=== PATIENT | male | born 1960 | race Caucasian/White ===

== ENCOUNTER 2018-03-07 14:02 | Emergency (ER) | payer OTHER ==
[~2018-03-07] VITALS: Ht 182.9 cm; Wt 165.9 kg
[~2018-03-07 14:02] MED LIST: ADVAIR DISKUS 21 DSK IH; ALAVERT10 M1 PO; AMLODIPINE BESYL5 MG PO; AVAPRO300 M1 PO; COREG25 MG PO; DUO-KAPS1 CAP PO; FLUTICASON0.05 MG/A1 NS; MEDI-FIRST ASP325 MG PO; METFORMIN1000 MG PO; PROVENTIL0.09 MG/Ac IH; SINGULAIR4 MG PO; VYTORIN 10 MG-41 TAB PO; [UNRECOGNIZED DRUG - OTHER] PO
[2018-03-07 14:55] LABS: HEMATOCRIT 44.6 % (42.0-52.0); MEAN CELL VOLUME 101 fl (78-100); MEAN CORPUSCULAR HEMOGLOBIN 32 pg (27-31); MEAN CORPUSCULAR HGB CONC 31 g/dL (33-37); PLATELET COUNT 203 K/mm3 (130-400); RED BLOOD COUNT 4.43 M/mm3 (4.20-5.60); RED CELL DISTRIBUTION WIDTH 13.7 % (11.5-14.5); WHITE BLOOD COUNT 7.5 K/mm3 (4.8-10.8)
[2018-03-07 15:15] LABS: ALBUMIN 3.5 g/dL (3.5-5.0); CALCIUM 8.7 mg/dL (8.4-10.2); POTASSIUM 4.7 mmol/L (3.6-5.0); TOTAL BILIRUBIN 1.2 mg/dL (0.2-1.3); TOTAL PROTEIN 6.2 g/dL (6.3-8.2)
[2018-03-07 15:55] LABS: D-DIMER 0.69 mg/L FEU (0.15-0.50)
[2018-03-07 16:03] LABS: LYMPHOCYTE 15 % (20-51); NEUTROPHILS 76 % (42-75)
[2018-03-07 16:04] LABS: MONOCYTE 9 % (3-10)
[2018-03-07] MEDS ORDERED: CLONAZEPAM1 M1 PO (16:22)
[2018-03-07] MEDS ORDERED: ESCITALOPRAM10 MG PO (16:22)
[2018-03-07] MEDS ORDERED: SINGULAIR PO (16:24)
[2018-03-07] MEDS ORDERED: NOVOLOG FLEX100 U/ML SC (16:24)
[2018-03-07] MEDS ORDERED: DESYREL 100MG100 MG PO (16:25)
[2018-03-07] MEDS ORDERED: JARDIANCE10 MG PO (16:27)
[2018-03-07 18:44] VITALS: BP 131/66
[2018-03-07] MEDS ORDERED: MORGIDOX 1X100100 MG PO (20:00)
== END 2018-03-07 20:08 | disposition home or self-care (01) ==
LOC: ED 14:02
PROVIDERS: Nurse Practitioner Primary Care
DX: R42 Dizziness and giddiness (principal); R11.2 Nausea with vomiting, unspecified; E10.9 Type 1 diabetes mellitus without complications; Z79.4 Long term (current) use of insulin; I10 Essential (primary) hypertension; J45.909 Unspecified asthma, uncomplicated; G47.30 Sleep apnea, unspecified; Z79.899 Other long term (current) drug therapy
CPT/HCPCS: J2405; J7120; Q9967

== ENCOUNTER → 2018-07-17 | Outpatient (CLI) | payer OTHER ==
[~2018-07-17] MED LIST changes: +CLONAZEPAM1 M1 PO; +DESYREL 100MG100 MG PO; +ESCITALOPRAM10 MG PO; +JARDIANCE10 MG PO; +MORGIDOX 1X100100 MG PO; +NOVOLOG FLEX100 U/ML SC; +SINGULAIR PO
[2018-07-17 16:18] LABS: BASO # 0.1 (0.02-0.10); EOS # 0.1 (0.04-0.40); EOS % 1.3 % (0.0-4.0); HEMOGLOBIN 15.5 g/dL (13.5-18.0); LYMPH# 1.5 (1.50-4.00); MEAN CELL VOLUME 99 fl (78-100); MEAN CORPUSCULAR HEMOGLOBIN 30 pg (27-31); MEAN CORPUSCULAR HGB CONC 30 g/dL (33-37); MEAN PLATELET VOLUME 11.4 fl (7.4-10.4); MONO # 1.3 (0.20-0.80); PLATELET COUNT 249 K/mm3 (130-400); RED BLOOD COUNT 5.15 M/mm3 (4.20-5.60); RED CELL DISTRIBUTION WIDTH 14.3 % (11.5-14.5); WHITE BLOOD COUNT 11.1 K/mm3 (4.8-10.8)
== END ==
LOC: LAB 15:53
PROVIDERS: Internal Medicine Pulmonary Disease
DX: R06.02 Shortness of breath (principal)

== ENCOUNTER → 2018-08-22 | Outpatient (CLI) | payer OTHER ==
[2018-08-27 05:26] LABS: DERMATOPHAGOIDES PTERONYSSIN XXX; OAK XXX
[2018-08-27 05:27] LABS: SALTWORT-RUSSIAN THISTLE XXX
== END ==
LOC: LAB 15:03
PROVIDERS: Internal Medicine Pulmonary Disease
DX: J30.9 Allergic rhinitis, unspecified (principal)

== ENCOUNTER → 2019-07-06 | Outpatient (CLI) | payer OTHER | LOC: RAD 07:27 | DX: R11.15 Cyclical vomiting syndrome unrelated to migraine (principal); E11.9 Type 2 diabetes mellitus without complications ==

== ENCOUNTER → 2020-11-14 | Outpatient (CLI) | payer OTHER ==
[2020-11-14 14:16] LABS: ALBUMIN 3.8 g/dL (3.4-4.8); POTASSIUM 4.5 mmol/L (3.5-5.1)
[2020-11-14 14:18] LABS: CALCIUM 9.3 mg/dL (8.3-10.5)
[2020-11-14 14:19] LABS: TOTAL PROTEIN 7.5 g/dL (6.2-8.1)
[2020-11-14 14:21] LABS: TOTAL BILIRUBIN 0.8 mg/dL (0.2-1.2)
== END ==
LOC: LAB 11:46
PROVIDERS: Registered Nurse
DX: E11.3291 Type 2 diabetes mellitus with mild nonproliferative diabetic retinopathy without macular edema, right eye (principal); E66.01 Morbid (severe) obesity due to excess calories; E03.9 Hypothyroidism, unspecified; E11.649 Type 2 diabetes mellitus with hypoglycemia without coma; E78.2 Mixed hyperlipidemia; I10 Essential (primary) hypertension; K75.81 Nonalcoholic steatohepatitis (NASH); E11.42 Type 2 diabetes mellitus with diabetic polyneuropathy; E55.9 Vitamin D deficiency, unspecified; Z79.4 Long term (current) use of insulin

== ENCOUNTER → 2021-01-17 | Outpatient (CLI) | payer OTHER | LOC: RAD 16:39 | DX: R22.1 Localized swelling, mass and lump, neck (principal) | CPT/HCPCS: Q9967 ==

== ENCOUNTER 2021-06-17 09:48 | Emergency (ER) | payer OTHER ==
[~2021-06-17] VITALS: Ht 182.9 cm; Wt 174.5 kg
[2021-06-17 09:57] VITALS: BP 143/90
[2021-06-17] MEDS ORDERED: ZOFRAN ODT4 MG PO (12:18)
== END 2021-06-17 11:36 | disposition home or self-care (01) ==
LOC: ED 09:48
DX: J10.1 Influenza due to other identified influenza virus with other respiratory manifestations (principal); E11.9 Type 2 diabetes mellitus without complications; F41.9 Anxiety disorder, unspecified; F32.A Depression, unspecified; Z20.822 Contact with and (suspected) exposure to COVID-19; Z79.84 Long term (current) use of oral hypoglycemic drugs; Z79.899 Other long term (current) drug therapy

== ENCOUNTER → 2021-07-20 | Outpatient (CLI) | payer OTHER ==
[~2021-07-20] MED LIST changes: +ATORVASTATIN CA80 MG PO; +LEVOTHYROXINE112 MCG PO; +METFORMIN HYD1000 MG PO; +OZEMPIC1 MG/0.71 SQ; +SERTRALINE HYD100 MG PO; +TRESIBA FL100 UNIT/1 SQ; +WELLBUTRIN XL300 M1 PO; +ZOFRAN ODT4 MG PO
== END ==
LOC: LAB 17:45
DX: Z20.822 Contact with and (suspected) exposure to COVID-19 (principal)

== ENCOUNTER 2021-07-24 13:31 | Emergency (ER) | payer OTHER ==
[~2021-07-24] VITALS: Wt 184.0 kg
[~2021-07-24 13:31] MED LIST changes: -ATORVASTATIN CA80 MG PO; -LEVOTHYROXINE112 MCG PO; -METFORMIN HYD1000 MG PO; -OZEMPIC1 MG/0.71 SQ; -SERTRALINE HYD100 MG PO; -TRESIBA FL100 UNIT/1 SQ; -WELLBUTRIN XL300 M1 PO
[2021-07-24] MEDS ORDERED: ATORVASTATIN CA80 MG PO (14:19)
[2021-07-24] MEDS ORDERED: WELLBUTRIN XL300 M1 PO (14:20)
[2021-07-24] MEDS ORDERED: OZEMPIC1 MG/0.71 SQ (14:21)
[2021-07-24] MEDS ORDERED: SERTRALINE HYD100 MG PO (14:21)
[2021-07-24] MEDS ORDERED: METFORMIN HYD1000 MG PO (14:21)
[2021-07-24] MEDS ORDERED: LEVOTHYROXINE112 MCG PO (14:21)
[2021-07-24] MEDS ORDERED: TRESIBA FL100 UNIT/1 SQ (14:22)
[2021-07-24 14:33] LABS: ALBUMIN 3.6 g/dL (3.4-4.8)
[2021-07-24 14:34] LABS: POTASSIUM 4.2 mmol/L (3.5-5.1)
[2021-07-24 14:35] LABS: CALCIUM 8.8 mg/dL (8.3-10.5)
[2021-07-24 14:36] LABS: TOTAL PROTEIN 6.8 g/dL (6.2-8.1)
[2021-07-24 14:38] LABS: TOTAL BILIRUBIN 1.1 mg/dL (0.2-1.2)
[2021-07-24 15:03] LABS: BASO # 0.08 K/mm3 (0.02-0.10); EOS # 0.12 K/mm3 (0.04-0.40); EOS % 1.7 % (0.0-4.0); HEMATOCRIT 46.8 % (42.0-52.0); HEMOGLOBIN 15.7 g/dL (13.5-18.0); LYMPH# 0.79 K/mm3 (1.50-4.00); MEAN CELL VOLUME 96 fl (78-100); MEAN CORPUSCULAR HEMOGLOBIN 32 pg (27-31); MEAN CORPUSCULAR HGB CONC 34 g/dL (33-37); MEAN PLATELET VOLUME 12.4 fl (7.4-10.4); MONO # 0.93 K/mm3 (0.20-0.80); NEU # 4.91 K/mm3 (1.40-6.50); PLATELET COUNT 143 K/mm3 (130-400); RED BLOOD COUNT 4.88 M/mm3 (4.20-5.60); RED CELL DISTRIBUTION WIDTH 13.1 % (11.5-14.5); WHITE BLOOD COUNT 6.9 K/mm3 (4.8-10.8)
[2021-07-24 15:15] LABS: PARTIAL THROMBOPLASTIN TIME 21.5 SECONDS (21.0-32.0); PROTHROMBIN TIME 10.5 SECONDS (9.0-12.0)
[2021-07-24 16:13] LABS: D-DIMER 0.65 mg/L FEU (0.15-0.50)
[2021-07-24 18:27] VITALS: BP 175/107
== END 2021-07-24 18:18 | disposition short-term general hospital (02) ==
LOC: ED 13:31
PROVIDERS: Nurse Practitioner
DX: I48.20 Chronic atrial fibrillation, unspecified (principal); R79.1 Abnormal coagulation profile; F41.9 Anxiety disorder, unspecified; F32.A Depression, unspecified; E03.9 Hypothyroidism, unspecified; E11.9 Type 2 diabetes mellitus without complications; J45.909 Unspecified asthma, uncomplicated; Z20.822 Contact with and (suspected) exposure to COVID-19; Z79.84 Long term (current) use of oral hypoglycemic drugs; Z79.4 Long term (current) use of insulin; Z79.890 Hormone replacement therapy; Z79.899 Other long term (current) drug therapy

== ENCOUNTER 2021-08-01 11:07 | Emergency (ER) | payer OTHER ==
[~2021-08-01] VITALS: Ht 182.9 cm; Wt 174.5 kg
[~2021-08-01 11:07] MED LIST changes: +ATORVASTATIN CA80 MG PO; +LEVOTHYROXINE112 MCG PO; +METFORMIN HYD1000 MG PO; +OZEMPIC1 MG/0.71 SQ; +SERTRALINE HYD100 MG PO; +TRESIBA FL100 UNIT/1 SQ; +WELLBUTRIN XL300 M1 PO
[2021-08-01] MEDS ORDERED: BETAPACE80 M1 (11:28)
[2021-08-01] MEDS ORDERED: ELIQUIS5 MG PO (11:35)
[2021-08-01] MEDS ORDERED: SOTALOL HYDROCH80 MG PO (11:35)
[2021-08-01 12:14] LABS: D-DIMER 0.54 mg/L FEU (0.15-0.50)
[2021-08-01 13:32] LABS: BASO # 0.09 K/mm3 (0.02-0.10); EOS # 0.15 K/mm3 (0.04-0.40); EOS % 2.1 % (0.0-4.0); HEMATOCRIT 47.4 % (42.0-52.0); MEAN CELL VOLUME 95 fl (78-100); MEAN CORPUSCULAR HEMOGLOBIN 32 pg (27-31); MEAN CORPUSCULAR HGB CONC 34 g/dL (33-37); MONO # 0.61 K/mm3 (0.20-0.80); NEU # 3.64 K/mm3 (1.40-6.50); PLATELET COUNT 210 K/mm3 (130-400); RED BLOOD COUNT 4.97 M/mm3 (4.20-5.60); RED CELL DISTRIBUTION WIDTH 12.9 % (11.5-14.5)
[2021-08-01 13:43] LABS: POTASSIUM 3.8 mmol/L (3.5-5.1); SODIUM 137 mmol/L (136-145)
[2021-08-01 13:45] LABS: CALCIUM 9.6 mg/dL (8.3-10.5)
[2021-08-01 13:46] LABS: GLUCOSE 208 mg/dL (75-110); TOTAL PROTEIN 7.7 g/dL (6.2-8.1)
[2021-08-01 13:47] LABS: CARBON DIOXIDE 21 mmol/L (23-31)
[2021-08-01 13:48] LABS: TOTAL BILIRUBIN 0.7 mg/dL (0.2-1.2)
[2021-08-01 13:51] LABS: AST-SGOT 71 U/L (5-34)
[2021-08-01 13:52] LABS: ALT/SGPT 75 U/L (0-55)
[2021-08-01 14:04] LABS: TROPONIN-I < 0.030 ng/mL (<0.030)
[2021-08-01] MEDS ORDERED: BETAPACE120 M1 PO (15:24)
[2021-08-01 15:29] VITALS: BP 153/74
== END 2021-08-01 15:37 | disposition home or self-care (01) ==
LOC: ED 11:07
PROVIDERS: Nurse Practitioner
DX: I48.91 Unspecified atrial fibrillation (principal); R79.1 Abnormal coagulation profile; R06.02 Shortness of breath; J45.909 Unspecified asthma, uncomplicated; Z98.84 Bariatric surgery status; Z79.899 Other long term (current) drug therapy; Z79.01 Long term (current) use of anticoagulants

== ENCOUNTER → 2021-08-24 | Outpatient (CLI) | payer OTHER ==
[~2021-08-24] MED LIST changes: +BETAPACE120 M1 PO; +BETAPACE80 M1; +ELIQUIS5 MG PO; +SOTALOL HYDROCH80 MG PO
[2021-08-24 12:06] LABS: ALBUMIN 3.6 g/dL (3.4-4.8)
[2021-08-24 12:07] LABS: POTASSIUM 4.4 mmol/L (3.5-5.1)
[2021-08-24 12:08] LABS: CALCIUM 9.6 mg/dL (8.3-10.5)
[2021-08-24 12:09] LABS: TOTAL PROTEIN 6.8 g/dL (6.2-8.1)
[2021-08-24 12:11] LABS: TOTAL BILIRUBIN 0.8 mg/dL (0.2-1.2)
[2021-08-24 12:15] LABS: MAGNESIUM 1.49 mg/dL (1.60-2.60)
== END ==
LOC: LAB 11:14
PROVIDERS: Internal Medicine
DX: E11.9 Type 2 diabetes mellitus without complications (principal); I10 Essential (primary) hypertension; E03.4 Atrophy of thyroid (acquired); G47.33 Obstructive sleep apnea (adult) (pediatric); J45.40 Moderate persistent asthma, uncomplicated; B97.4 Respiratory syncytial virus as the cause of diseases classified elsewhere; I48.0 Paroxysmal atrial fibrillation; K90.9 Intestinal malabsorption, unspecified; F51.04 Psychophysiologic insomnia

== ENCOUNTER → 2022-02-23 | Outpatient (CLI) | payer OTHER ==
[2022-02-23 09:38] LABS: ALBUMIN 4.1 g/dL (3.4-4.8); POTASSIUM 4.4 mmol/L (3.5-5.1)
[2022-02-23 09:40] LABS: CALCIUM 9.6 mg/dL (8.3-10.5)
[2022-02-23 09:41] LABS: TOTAL PROTEIN 7.9 g/dL (6.2-8.1)
[2022-02-23 09:43] LABS: TOTAL BILIRUBIN 0.8 mg/dL (0.2-1.2)
== END ==
LOC: LAB 09:15
PROVIDERS: Registered Nurse
DX: E11.3291 Type 2 diabetes mellitus with mild nonproliferative diabetic retinopathy without macular edema, right eye (principal); E55.9 Vitamin D deficiency, unspecified; K75.81 Nonalcoholic steatohepatitis (NASH); E66.01 Morbid (severe) obesity due to excess calories; E78.2 Mixed hyperlipidemia; E03.9 Hypothyroidism, unspecified; E11.649 Type 2 diabetes mellitus with hypoglycemia without coma; I10 Essential (primary) hypertension; E11.42 Type 2 diabetes mellitus with diabetic polyneuropathy; Z98.890 Other specified postprocedural states; Z79.4 Long term (current) use of insulin

== ENCOUNTER → 2022-04-10 | Outpatient (CLI) | payer OTHER | LOC: LAB 14:02 | DX: E03.9 Hypothyroidism, unspecified (principal) ==

== ENCOUNTER → 2023-03-25 | Outpatient (CLI) | payer OTHER | LOC: LAB 17:12 | DX: E03.9 Hypothyroidism, unspecified (principal) ==

== ENCOUNTER 2023-09-20 09:32 | Inpatient (IN) | payer OTHER ==
[~2023-09-20] VITALS: Ht 182.9 cm; Wt 166.8 kg
[2023-09-20] MEDS ORDERED: Acetaminophen 325 MG TAB PO PRN ×2 (17:00→20:00)
[2023-09-20] MEDS ORDERED: Polyethylene Glycol 3350 Powder 17 GM PACKET PO PRN (17:00)
[2023-09-20] MEDS ORDERED: Docusate Sodium 100 MG CAP PO PRN (17:00)
[2023-09-20 17:47] VITALS: BP 165/83
[2023-09-20] MEDS ORDERED: BIOTIN10 MG PO (18:00)
[2023-09-20] MEDS ORDERED: CALCIUM CITRAT1 EAC9 PO (18:02)
[2023-09-20] MEDS ORDERED: HYGROTON 2525 MG/TAB PO (18:03)
[2023-09-20] MEDS ORDERED: BENADRYL (18:05)
[2023-09-20] MEDS ORDERED: DAILY VALUE1 EACH PO (18:07)
[2023-09-20] MEDS ORDERED: FLUTICASONE P15.8 ML NS (18:08)
[2023-09-20] MEDS ORDERED: NORCO 325 MG-51 TA1 PO (18:10)
[2023-09-20] MEDS ORDERED: LEVOCETIRIZINE D5 MG PO (18:11)
[2023-09-20] MEDS ORDERED: OPCON-A 0.027%-15 M1 OP (18:14)
[2023-09-20] MEDS ORDERED: PROAIR HFA0.09 MG/AC IH (18:15)
[2023-09-20] MEDS ORDERED: PANTOPRAZOLE SO40 MG PO (18:15)
[2023-09-20] MEDS ORDERED: ZOLOFT 100MG100 MG PO (18:16)
[2023-09-20] MEDS ORDERED: ACETAMINOPHEN325 M1 PO (18:19)
[2023-09-20] MEDS ORDERED: BUDESONIDE0.5 MG/2 M IH (18:20)
[2023-09-20] MEDS ORDERED: K-TAB20 MEQ PO (18:21)
[2023-09-20 18:22] LABS: BASO # 0.08 K/mm3 (0.02-0.10); EOS # 0.13 K/mm3 (0.04-0.40); EOS % 1.9 % (0.0-4.0); HEMATOCRIT 44.8 % (42.0-52.0); HEMOGLOBIN 14.4 g/dL (13.5-18.0); LYMPH# 0.87 K/mm3 (1.50-4.00); MEAN CELL VOLUME 104 fl (78-100); MEAN CORPUSCULAR HEMOGLOBIN 33 pg (27-31); MEAN CORPUSCULAR HGB CONC 32 g/dL (33-37); MEAN PLATELET VOLUME 11.7 fl (7.4-10.4); MONO # 0.91 K/mm3 (0.20-0.80); NEU # 4.86 K/mm3 (1.40-6.50); PLATELET COUNT 188 K/mm3 (130-400); RED BLOOD COUNT 4.31 M/mm3 (4.20-5.60); WHITE BLOOD COUNT 6.9 K/mm3 (4.8-10.8)
[2023-09-20] MEDS ORDERED: LASIX20 M1 PO (18:22)
[2023-09-20] MEDS ORDERED: MOUNJARO15 MG/0.5 SQ (18:24)
[2023-09-20 18:27] LABS: ALBUMIN 3.4 g/dL (3.4-4.8)
[2023-09-20] MEDS ORDERED: TOUJEO MAX300 UNIT/1 SQ (18:28)
[2023-09-20 18:29] LABS: CALCIUM 9.4 mg/dL (8.3-10.5)
[2023-09-20 18:30] LABS: TOTAL PROTEIN 6.8 g/dL (6.2-8.1)
[2023-09-20] MEDS ORDERED: VITAMIN B121000 MC3 PO (18:30)
[2023-09-20 18:32] LABS: TOTAL BILIRUBIN 1.6 mg/dL (0.2-1.2)
[2023-09-20] MEDS ORDERED: NIACIN (18:39)
[2023-09-20] MEDS ORDERED: SYSTANE COMPLE1 EACH OP (18:39)
[2023-09-20] MEDS ORDERED: AMBIEN10 MG PO (18:40)
[2023-09-20] MEDS ORDERED: PHARMASSURE ZIN50 MG PO (18:40)
--- NOTE | 2023-09-20 18:48 | NUR ---
PATIENT ALERT AND ORIENTED X4, PATIENT BROUGHT TO FLOOR BY WHEELCHAIR WITH FAMILY AT SIDE, SKIN INSPECTION AND ASSESSMENT PERFORMED SEE NOTE, SACRAL MEPILEX AND MOISTURE WICKING TOWELS IN PLACE. PATIENT ASSISTED FROM RECLINER TO BED, PATIENT EDUCATED ON ROOM FUNCTIONS AND HOSPITAL POLICIES, PATIENT CURRENTLY ON 3.5 L OF O2 VIA NC, PATIENT CURRENTLY RESTING IN BED WITH CALL LIGHT IN REACH, NO FURTHER NEEDS OR CONCERNS AT THIS TIME.
--- NOTE | 2023-09-20 19:07 | NUR ---
REPORT GIVEN TO KERMIT
[2023-09-20] MEDS ORDERED: clonazePAM 0.5 MG TABLET PO PRN (19:15)
[2023-09-20] MEDS ORDERED: Dextrose (Glucose) 15 GM (4 x 3.75 GM) Chewable TAB PACK PO PRN (20:15)
[2023-09-20] MEDS ORDERED: Glucagon 1 MG VIAL IM PRN (20:15)
[2023-09-20] MEDS ORDERED: Dextrose 50% Water 25 GM/50 ML SYRINGE IV PRN (20:15)
[2023-09-20] MEDS ORDERED: Albuterol 90 MCG/PUFF MDI IH PRN (20:30)
[2023-09-20] MEDS ORDERED: diphenhydrAMINE 25 MG CAP PO PRN (20:30)
[2023-09-20] MEDS ORDERED: Zolpidem 5 MG TAB PO PRN (20:30)
[2023-09-20] MEDS ORDERED: Calcium Carb/Vit D3 500 mg-200 Units TAB PO SCH (21:00)
[2023-09-20] MEDS ORDERED: metFORMIN 500 MG TAB PO SCH (21:00)
[2023-09-20] MEDS ORDERED: Budesonide Neb Soln 0.5 MG/2 ML AMP IH SCH (21:00)
[2023-09-20] MEDS ORDERED: Apixaban 5 MG TABLET PO SCH (21:00)
[2023-09-21 06:05] VITALS: BP 130/69
[2023-09-21] MEDS ORDERED: Insulin Aspart (NovoLOG) SQ SCH ×3 (07:00→16:30)
[2023-09-21] MEDS ORDERED: metFORMIN 500 MG TAB PO SCH (08:00)
[2023-09-21] MEDS ORDERED: Multivitamin TAB PO SCH (09:00)
[2023-09-21] MEDS ORDERED: buPROPion XL (24-HR ER) 150 MG TAB PO SCH (09:00)
[2023-09-21] MEDS ORDERED: Sertraline 50 MG TAB PO SCH (09:00)
[2023-09-21] MEDS ORDERED: PHENIRAMINE OP SCH (09:00)
[2023-09-21] MEDS ORDERED: Fluticasone Nasal 50 MCG/Spray 16 GM BOTTLE NS SCH (09:00)
[2023-09-21] MEDS ORDERED: Cetirizine 10 MG TAB PO SCH (09:00)
[2023-09-21] MEDS ORDERED: Losartan 50 MG TAB PO SCH (09:00)
[2023-09-21] MEDS ORDERED: NAPHAZOLINE OP SCH (09:00)
[2023-09-21] MEDS ORDERED: Furosemide 20 MG TAB PO SCH (09:00)
[2023-09-21] MEDS ORDERED: Empagliflozin 10 MG TAB PO SCH (09:00)
[2023-09-21 12:21] LABS: CALCIUM 9.4 mg/dL (8.3-10.5)
[2023-09-21 17:30] VITALS: BP 148/61
[2023-09-21 19:57] LABS: URINE COLOR YELLOW (YELLOW)
[2023-09-21 20:00] LABS: PH-URINE 5.5 (5.0 - 8.0); URINE APPEARANCE CLEAR (CLEAR); URINE BILIRUBIN 1+ (NEGATIVE); URINE BLOOD NEGATIVE (NEGATIVE); URINE KETONE NEGATIVE (NEGATIVE); URINE LEUKOCYTE ESTERASE NEGATIVE (NEGATIVE); URINE NITRATE NEGATIVE (NEGATIVE); URINE PROTEIN(semi-quant) NEGATIVE (NEGATIVE)
[2023-09-21 20:01] LABS: URINE GLUCOSE 2+ (NEGATIVE)
[2023-09-21 20:07] LABS: URINE WBC 0-1 /hpf (0-3)
--- NOTE | 2023-09-21 23:48 | NUR ---
Pt calls the hospital phone linefor help. Staff entered pt room and he had set his bed in a 90 [address] had slid down in bed with his feet hanging off the bed. Pt had removed his C-pap mask and urnary device. Pt has thrown his C-pap mask on the floor with his call light. PT states it normal for him to be confused around midnight every night. 3 staff memebers are required to assist the pt in bed. New sheet area pplied and new urine collection system applied. Call light clipped on to pt gown to keep it from falling off the bed. Pt was given his C-pap mask to put back on. Pt reports all needs ment at this time,
[2023-09-22 06:13] VITALS: BP 145/76
[2023-09-22] MEDS ORDERED: Insulin Aspart (NovoLOG) SQ SCH (07:00)
[2023-09-22] MEDS ORDERED: Furosemide 40 MG TAB PO SCH (09:00)
[2023-09-22 15:43] VITALS: BP 137/76
--- NOTE | 2023-09-22 21:17 | NUR ---
PT 1 ASSISST TO BEDSIDE COMMODE. MEDIUM BM. PT BACK TO BED. MEDICATIONS GIVEN, BREATHING TREATMENT COMPLETE. REPORTS HAVING NO PAIN AND THAT HIS SHAKINESS IN HIS LEGS WAS A LOT BETTER TODAY. 02 RUNNING AT 3.5 LITERS NC. INERDRY'S IN GROIN AREA REPLACED. NO OTHER WANTS OR NEEDS AT THIS TIME. BED RAILSX3, CALL LIGHT WITHIN REACH.
--- NOTE | 2023-09-23 00:32 | NUR ---
ARRIVED TO ROOM TO ANSWER CALL LIGHT, PT WAS SITTING ON THE EDGE OF THE BED STATING THAT HIS BACK WAS BREAKING OUT. PRN BENADRYL GIVEN AND COLD WASH CLOTH APPLIED. PT ALSO STATED THAT HIS GAVE HIM BENADRYL DURING THE DAY. EXPLAINED TO PT THAT WE CAN'T DO THAT AND IF HE NEEDS MEDICATION TO ASK US FOR IT.
--- NOTE | 2023-09-23 02:40 | NUR ---
UPON ANSWERING CALL LIGHT, PT WAS RETIREMENT LAYING OFF BED AND ASKING ABOUT HIS MEDS. STATED THAT HE HAD ALREADY TAKEN THEM AND THAT HE NEEDED TO CALL IF HE WAS WANTING TO GET UP AND EXPLAINED THE RISK OF FALLING. BED ALARM ON.
[2023-09-23 05:52] VITALS: BP 149/70
[2023-09-23] MEDS ORDERED: Insulin Aspart (NovoLOG) SQ SCH (07:30)
[2023-09-23] MEDS ORDERED: Dextrose/Magnesium Sulfate 100 ML IV SCH (11:30)
--- NOTE | 2023-09-23 11:30 | NUR ---
MARIETTA COVINGTON NOTIFIED OF LOW MAGNESIUM LEVEL. PT C/O FEELING TIRED TODAY. PT HAS BEEN GETTING AMBIEN AND KLONOPIN AT HS WITH CONTINUED DIFFICULTY SLEEPING. PT HAS HAD HAND TREMORS SINCE ARRIVAL BUT NOTED TO BE MORE SEVERE TODAY. PT UNAWARE OF TREMORS. PT ORIENTED WITH DIFFICULTY FOCUSING TODAY.
[2023-09-23 11:57] LABS: ALBUMIN 3.5 g/dL (3.4-4.8)
[2023-09-23 11:59] LABS: CALCIUM 9.9 mg/dL (8.3-10.5)
[2023-09-23 12:02] LABS: TOTAL BILIRUBIN 1.4 mg/dL (0.2-1.2)
[2023-09-23 12:30] VITALS: BP 138/89
--- NOTE | 2023-09-23 12:30 | NUR ---
PT PLACED ON BUFFET MANAGER FOR DURATION OF MAGNESIUM INFUSION. INITIAL TELE: IRREGULAR, REGULAR, SR, TN-0.16, QRS-0.08, QT-0.30, NO ECTOPY NOTED.
[2023-09-23 18:04] VITALS: BP 123/72
--- NOTE | 2023-09-23 19:00 | NUR ---
Report received from Kayce PORTILLO.
--- NOTE | 2023-09-23 20:00 | NUR ---
Patient resting in bed watching wrestling on TV. Alert and oriented x 4. Pleasant. Denies pain. No edema to legs noted. States will take his meds at 2100 along with chocolate glucerna. Accu check 96.
--- NOTE | 2023-09-23 21:00 | NUR ---
meds along with cindy and norma for sleep reviewed and given. Swallowed without problems. o2 on 3.5l pnc.
--- NOTE | 2023-09-23 22:25 | NUR ---
Accu check 106.
--- NOTE | 2023-09-23 22:45 | NUR ---
Patient up mod 2-3 assist to BSC to have bm. Blood sugar via dexcom 63 and our machine 73. Snack of OJ 6oz and 1/2 peanut butter sandwich given. Patient asymptomatic at this time. Quiana COVINGTON notified of above. Assisted back to bed. Requires max assist with legs into bed.
--- NOTE | 2023-09-24 05:50 | NUR ---
Patient reports he had restless night since 0200. States he had cramping in his legs. Reviewed he'll be getting magnesium lab draw this am and low mg may cause cramping. Up to the bathroom but no bm and back to bed.
[2023-09-24 05:56] VITALS: BP 161/83
[2023-09-24] MEDS ORDERED: Sertraline 50 MG TAB PO SCH (09:00)
[2023-09-24] MEDS ORDERED: Magnesium Oxide 400 MG TAB PO SCH (09:29)
[2023-09-24 09:45] LABS: ALBUMIN 3.7 g/dL (3.4-4.8)
[2023-09-24 09:47] LABS: TOTAL PROTEIN 7.3 g/dL (6.2-8.1)
[2023-09-24 09:49] LABS: TOTAL BILIRUBIN 1.6 mg/dL (0.2-1.2)
[2023-09-24] MEDS ORDERED: Insulin Aspart (NovoLOG) SQ SCH (11:30)
[2023-09-24] MEDS ORDERED: Dextrose/Magnesium Sulfate 100 ML IV SCH (13:00)
[2023-09-24] MEDS ORDERED: LACTULOSE 10 GM/15 ML PO ONE (13:15)
[2023-09-24] MEDS ORDERED: LACTULOSE 10 GM/15 ML PO SCH (14:00)
--- NOTE | 2023-09-24 16:35 | NUR ---
recieved report from juliette Chaves
[2023-09-24 18:02] VITALS: BP 133/80
--- NOTE | 2023-09-24 20:15 | NUR ---
Patient resting in bed watching TV. Denies pain. Alert and oriented x 4 at this time. HS meds all reviewed and given. Accu check 147. Reviewed lactolose for elevated amonia level.
--- NOTE | 2023-09-25 05:39 | NUR ---
Patient has been resting with eyes closed.
[2023-09-25 06:01] LABS: BASO # 0.13 K/mm3 (0.02-0.10); EOS # 0.32 K/mm3 (0.04-0.40); EOS % 3.7 % (0.0-4.0); HEMATOCRIT 44.9 % (42.0-52.0); HEMOGLOBIN 14.3 g/dL (13.5-18.0); LYMPH# 1.65 K/mm3 (1.50-4.00); MEAN CELL VOLUME 106 fl (78-100); MEAN CORPUSCULAR HEMOGLOBIN 34 pg (27-31); MEAN CORPUSCULAR HGB CONC 32 g/dL (33-37); MEAN PLATELET VOLUME 12.4 fl (7.4-10.4); MONO # 0.86 K/mm3 (0.20-0.80); NEU # 5.61 K/mm3 (1.40-6.50); PLATELET COUNT 166 K/mm3 (130-400); RED BLOOD COUNT 4.25 M/mm3 (4.20-5.60); RED CELL DISTRIBUTION WIDTH 13.3 % (11.5-14.5); WHITE BLOOD COUNT 8.6 K/mm3 (4.8-10.8)
[2023-09-25 06:20] LABS: ALBUMIN 3.4 g/dL (3.4-4.8)
[2023-09-25 06:21] LABS: CALCIUM 9.6 mg/dL (8.3-10.5)
[2023-09-25 06:22] LABS: TOTAL PROTEIN 6.7 g/dL (6.2-8.1)
[2023-09-25 06:24] LABS: TOTAL BILIRUBIN 1.3 mg/dL (0.2-1.2)
[2023-09-25 06:29] LABS: MAGNESIUM 1.57 mg/dL (1.60-2.60)
[2023-09-25 06:30] VITALS: BP 159/74
[2023-09-25] MEDS ORDERED: Levothyroxine 0.1 MG,Levothyroxine 0.075 MG PO SCH (07:00)
[2023-09-25] MEDS ORDERED: Insulin Aspart (NovoLOG) SQ SCH ×3 (07:30→16:30)
[2023-09-25] MEDS ORDERED: buPROPion XL (24-HR ER) 150 MG TAB PO SCH (09:00)
[2023-09-25 17:52] VITALS: BP 155/69
--- NOTE | 2023-09-25 22:32 | NUR ---
PT RESTING IN BED. 2 ASSIST TO BEDSIDE COMMODE FOR LARGE BM. PT BACK TO BED. NO PAIN. MEDICATION TAKEN PO. BREATHING TREATMENT COMPLETE. SHEETS CHANGED DUE TO AND EARIER EPISODE OF INCONTINENCE. O2 3.5L VIA NC. NO PAIN. RASH ON BACKSIDE. EXTERNAL MALE CATHERTER STILL IN PLACE. CALL LIGHT WITHIN REACH. SIDE RAILS X3, BED ALARM ON.
[2023-09-26 05:15] VITALS: BP 158/71
--- NOTE | 2023-09-26 07:00 | NUR ---
RESUMED CARE FROM BANDAR MATTHEWS.
[2023-09-26] MEDS ORDERED: Insulin Aspart (NovoLOG) SQ SCH (07:30)
--- NOTE | 2023-09-26 08:15 | NUR ---
PATIENT SITTING IN RECLINER UPON ARRIVAL TO ROOM. DENIES PAIN. ASSESSMENT COMPELTED AT THIS TIME. AM MEDICATIONS PROVIDED. 3L O2 NC REMAINS IN PLACE. NO COMPLAINTS. PATIENT REMAINS IN RELCINER UPON DEPARTURE FROM ROOM. CALL LIGHT WITHIN REACH, CHAIR ALARMED.
[2023-09-26 15:37] VITALS: BP 137/79
[2023-09-26 16:09] LABS: VITAMIN B1 140.8 nmol/L (())
--- NOTE | 2023-09-26 19:07 | NUR ---
REPORT TO BANDAR MATTHEWS.
--- NOTE | 2023-09-26 22:59 | NUR ---
2 ASSIST TO BATHROOM VIA WALKER. LARGE BM. PT BACK TO BED. MEDICATION TAKEN PO. ASSESSMENT COMPLETE. STATED THAT HE "HAD A GOOD DAY TODAY AND GOT TO DO SOME WALKING WITH THERAPY". CPAP ON. CALL LIGHT WITHIN REACH, SIDE RAILSX3.
[2023-09-27 06:00] VITALS: BP 148/82
[2023-09-27] MEDS ORDERED: Insulin Aspart (NovoLOG) SQ SCH ×2 (08:00→12:00)
[2023-09-27 17:23] VITALS: BP 119/64
--- NOTE | 2023-09-27 19:00 | NUR ---
REPORT TO BANDAR BOYCE.
[2023-09-28 06:40] VITALS: BP 103/57
--- NOTE | 2023-09-28 07:14 | NUR ---
recieved report from hussain capps
--- NOTE | 2023-09-28 08:22 | NUR ---
patient alert and oriented x4, states he slept fair. Patient reports no pain this morning. Patient assisted to chair by pct morgan, patient reports recieving shower last evening and skin on upper back where latex allergy reaction occured is slightly inflammed. Patient currently resting in chair eating breakfast, patient denies any furhter needs or concerns at this time.
--- NOTE | 2023-09-28 08:58 | NUR ---
discussed with provider Minges about patient blood sugar and insulin admission dose, provider approved 30 units of novolog for blood sugar 180.
--- NOTE | 2023-09-28 10:05 | NUR ---
patient vomitted shortly after taking morning medications and many medications were in the vomit, patient states that it sometimes happens after he takes his morning medications.
--- NOTE | 2023-09-28 15:43 | NUR ---
lab report for pt, ammonia level high 77, refrence range 18-72, provider minges notified.
--- NOTE | 2023-09-28 16:14 | NUR ---
interdry applied to patients groin areas, morgan pct assisting patient to chair for upcoming meal.
[2023-09-28 17:12] VITALS: BP 137/83
--- NOTE | 2023-09-28 18:50 | NUR ---
report given to hussain capps
[2023-09-29 06:20] VITALS: BP 153/81
[2023-09-29 17:17] VITALS: BP 143/79
[2023-09-30 05:39] VITALS: BP 138/78
[2023-09-30] MEDS ORDERED: Nystatin 100,000 Units/GM Cream 15 GM TUBE TP SCH (11:42)
--- NOTE | 2023-09-30 15:42 | NUR ---
Pt alert and oriented times 4. He has needed encouragement to get out of bed. Pt is able to walk to bathroom with SBA .He states he has chronic pain in hands that he rates 3/10 but states he cannot use tylenol. He did states the last time that Adryan gave him two lortab so I ask him if he wanted Lortab and he declined.
--- NOTE | 2023-09-30 16:16 | NUR ---
PT. HAS OPEN AREA IN GROIN THAT IS 0.3X0.3 THIS IS A HOLE AND NO TUNNELING NOTED AT TIME OF ASSESSMENT. IGOR FISHER NOTIFIED OF CONCERN . PT ALSO HAS EXCORIATION TO GROIN AND PANUS. PT WAS CONCERNED OF AREA UNDER TESTICLE BUT ON EXAMINATION WE DID NOT SEE ANY OPEN AREAS.
[2023-09-30 17:13] VITALS: BP 124/65
--- NOTE | 2023-09-30 17:24 | NUR ---
PT. has open area to left groin and has hole in this region. Excoriation of panus and bilateral groin.
--- NOTE | 2023-09-30 19:15 | NUR ---
REPORT FROM BANDAR SIMONS
--- NOTE | 2023-09-30 21:28 | NUR ---
PATIENT IS A&O X 4. EENT CLEAR. LUNGS CTA IN UPPER LOBES, DIMINISHED IN LOWER. HR REGULAR, NO EDEMA NOTED. DENIES PAIN OR DISCOMFORT. REQUESTING SOPHIA AND AMANDA FOR SLEEP TONIGHT. CALL LIGHT IN REACH
[2023-10-01 06:05] VITALS: BP 127/84
--- NOTE | 2023-10-01 06:09 | NUR ---
PATIENT RESTING IN BED, CPAP ON AND BREATHING UNLABORED. CALL LIGHT IN REACH
--- NOTE | 2023-10-01 10:33 | NUR ---
PT WAS IN CHAIR EATING BREAKFAST. AFTER TAKING FIRST COUPLE PILLS PT HAD VOMITTED AROUND 250 MLS, STATED THAT HE ATE HIS FOOD TOO FAST. PRN ZOFRAN GIVEN. AFTER 15 MINUTES PT WAS ABLE TO GET THE REST OF HIS PILLS DOWN PO WITHOUT DIFFICULTY. BREATHING TREATMENT COMPLETE. NO PAIN. INTERLOCKS IN PLACE. O2 RUNNING AT 3.5L VIA NC. CALL LIGHT WITHIN REACH, PT IN CHAIR.
--- NOTE | 2023-10-01 11:52 | NUR ---
PT GOT HIMSELF UP AND IN HIS CHAIR WITHOUT ASSISTANCE. EDUCATED ON THE IMPORTANCE OF HAVING A STAFF MEMBER WITH HIM WHILE HE AMBULATES. CHAIR ALARM PLACED ON BED NOW, CHAIR ALARM ON CHAIR ON.
[2023-10-01 17:23] VITALS: BP 146/81
--- NOTE | 2023-10-01 19:01 | NUR ---
recieved report from bianca capps
--- NOTE | 2023-10-01 20:36 | NUR ---
Patient alert and oriented x4, patient assisted to bathroom by this nurse, patient ambulated well. patient has ulcer pinpoint wounds in groin fold areas, mepilex in place, patient reports groin areas feeling much better than last night patient currently resting in bed with call light in reach, patient denied any futher needs or concerns at this time.
[2023-10-02 06:03] VITALS: BP 144/71
--- NOTE | 2023-10-02 06:40 | NUR ---
report given to bianca capps
--- NOTE | 2023-10-02 08:45 | NUR ---
PT STRUGGLED THIS MORNING WITH TAKING MEDICATION. AFTER THE FIRST COUPLE OF TRYS, MEDICATION WERE PUT IN APPLESAUCE AND TOLERATED WELL. ASSESSMENT COMPLETE. RASH ON BACK. MEPILEX ON L GROIN AREA. REDNESS UNDER SKIN FOLDS. RATES PAIN 4/10 ON FINGERS, PT STATES "IT'S ARTHRITIS PAIN". 3.5 L VIA NC. NO OTHER NEEDS OR WANTS AT THIS TIME. CALL LIGHT WITHIN REACH, CHAIR ALARM ON.
[2023-10-02 08:48] LABS: EOS # 0.64 K/mm3 (0.04-0.40); EOS % 5.9 % (0.0-4.0); LYMPH# 1.95 K/mm3 (1.50-4.00); MEAN CELL VOLUME 101 fl (78-100); MEAN CORPUSCULAR HEMOGLOBIN 33 pg (27-31); MEAN CORPUSCULAR HGB CONC 33 g/dL (33-37); MEAN PLATELET VOLUME 12.7 fl (7.4-10.4); MONO # 0.88 K/mm3 (0.20-0.80); NEU # 7.22 K/mm3 (1.40-6.50); PLATELET COUNT 194 K/mm3 (130-400); RED BLOOD COUNT 4.54 M/mm3 (4.20-5.60); WHITE BLOOD COUNT 10.8 K/mm3 (4.8-10.8)
[2023-10-02 08:57] LABS: ALBUMIN 3.7 g/dL (3.4-4.8); CALCIUM 9.9 mg/dL (8.3-10.5)
[2023-10-02 08:59] LABS: TOTAL PROTEIN 7.3 g/dL (6.2-8.1)
[2023-10-02 09:00] LABS: TOTAL BILIRUBIN 1.1 mg/dL (0.2-1.2)
[2023-10-02 09:07] LABS: MAGNESIUM 1.42 mg/dL (1.60-2.60)
[2023-10-02 11:52] VITALS: BP 115/81
[2023-10-02 11:53] VITALS: BP 152/77
[2023-10-02] MEDS ORDERED: Magnesium Oxide 400 MG TAB PO SCH (17:00)
[2023-10-02 17:37] VITALS: BP 148/77
--- NOTE | 2023-10-02 19:00 | NUR ---
recieved report from bianca capps
--- NOTE | 2023-10-02 19:45 | NUR ---
patient alert and oriented x4, patient has at bedside. This nurse assisted patient to restroom, patient had medium bm, no difficulties ambulating with walker. patient returned to bed with no complications. assessment performed, patient currently resting in bed with call light in reach, patient denied any further needs at this time.
[2023-10-02] MEDS ORDERED: Zolpidem 5 MG TAB PO SCH (21:00)
[2023-10-03 05:33] VITALS: BP 138/83
--- NOTE | 2023-10-03 06:53 | NUR ---
report given to sherine slater
--- NOTE | 2023-10-03 07:00 | NUR ---
REPORT RECEIVED FROM BANDAR ORTEAG
[2023-10-03] MEDS ORDERED: Magnesium Oxide 400 MG TAB PO SCH (08:00)
--- NOTE | 2023-10-03 13:10 | NUR ---
CHAIR ALARM ALARMING, THIS NURSE ENTERED ROOM, PATIENT MOVED FROM BED TO CHIAR WITHOUT STAFF PRESENT. THIS NURSE REMINDED PATIENT TO UTILIZE CALL LIGHT WHEN NEEDING TO MOVE ABOUT ROOM DUE TO FALL RISK AND RISK OF INJURY. PATIENT VERBALIZED UNDERSTANDING.
[2023-10-03 17:27] VITALS: BP 152/72
--- NOTE | 2023-10-03 18:57 | NUR ---
REPORT GIVEN TO BANDAR HARRIS
--- NOTE | 2023-10-03 21:00 | NUR ---
PT IN BED AND O2 IN PLACE VIA NASAL CANNULA, PT IS A&O X4. PT IS WEAK AND GRABS TRAPEZE TO REPOSITION SELF, BUT IS UNSUCCESFUL INDEPENDENTLY. PT MEDS ADMINISTERED PER eMAR AND ALL NEEDS MED. PT HAS BELONGINGS IN REACH, CALL LIGHT IN REACH, BED IS IN LOW POSITION, AND BED ALARM ON.
[2023-10-04 05:38] VITALS: BP 115/72
[2023-10-04 17:08] VITALS: BP 159/84
--- NOTE | 2023-10-04 19:00 | NUR ---
Report received from Kayce PORTILLO.
--- NOTE | 2023-10-04 21:00 | NUR ---
HS meds all reviewed and given. Patient resting in bed watching TV. Denies pain or needs at this time.
[2023-10-05 05:42] VITALS: BP 162/80; BP_SYST 159
--- NOTE | 2023-10-05 08:50 | NUR ---
PT WAS RESTING IN CHAIR EATING BREAKFAST. O2 RUNNING AT 3.5 VIA NC. ASSESSMENT COMPLETE. MEDICATION TAKEN PO IN APPLESAUCE WITH NO DIFFICULTIES. RASH ON BACK. MEPOLEX ON L GROIN AREA CHANGED. INTERDRYS IN PLACE. NO PAIN. STATED THAT HE SLEPT GOOD DURING THE NIGHT. PT BACK TO BED, ALARM ON, CALL LIGHT WITHIN REACH.
[2023-10-05] MEDS ORDERED: Potassium Bicarbonate/Citrate 20 MEQ Effervescent TAB PO SCH (09:00)
--- NOTE | 2023-10-05 18:02 | NUR ---
PT STATED "THAT HE HAS ASKED MULTIPLE TIMES FOR A SHOWER TODAY." TALKED WITH PCT AND SHE HAD ASKED HIM TWICE FOR A SHOWER TODAY AND HE HAS DENIED IT BOTH TIMES.
[2023-10-05 18:14] VITALS: BP 136/82
--- NOTE | 2023-10-05 20:45 | NUR ---
Patient resting in bed watching TV. HS meds reviewed and given in pudding along with klonopin for relaxation and sleep. Denies further needs.
[2023-10-06 06:25] VITALS: BP 108/77
--- NOTE | 2023-10-06 06:32 | NUR ---
Patient resting soundly. Awakened for am meds. States he slept well. Wore CPAP through the night.
--- NOTE | 2023-10-06 08:41 | NUR ---
ASSISTED PT TO BATHROOM VIA WALKER. NO BM. PT BACK TO CHAIR. STATED THAT HE SLEPT VERY WELL LAST NIGHT. NO PAIN. ASSESSMENT COMPLETE. MEDICATION TAKEN WHOLE PO IN APPLESAUCE. O2 RUNNING AT 3.5L VIA NC. NO OTHER WANTS OR NEEDS AT THIS TIME. CALL LIGHT WITHIN REACH.
[2023-10-06 18:00] VITALS: BP 138/73
--- NOTE | 2023-10-06 19:20 | NUR ---
Patient had bout of nausea and vomited up 200mls food particles. Zofran 4mg reviewed and given. States he does that off and on.
--- NOTE | 2023-10-07 05:00 | NUR ---
Patient reports he slept well. Denies needs.
[2023-10-07 05:28] VITALS: BP 156/79
--- NOTE | 2023-10-07 08:45 | NUR ---
PT SITTING IN CHAIR. STATED THAT HE HAD AN EPISODE OF VOMITTING LAST NIGHT BUT HASNT HAD ANY N/V SINCE. NO PAIN. 02 RUNNING AT 3.5L VIA NC. ASSESSMENT COMPLETE. SMALL SCRATCH NOTED ON RIGHT THIGH, AREA CLEANED AND BANDAID APPLIED. MEDICATION TAKEN PO WHOLE IN PUDDING, TOLERATED WELL. NO OTHER CONERNS OR WANTS AT THIS TIME. CHAIR ALARM ON, CALL LIGHT WITHIN REACH.
[2023-10-07 17:08] VITALS: BP 126/71
--- NOTE | 2023-10-07 22:13 | NUR ---
PT CALLED RN INTO ROOM TO HELP HIM FIND HIS AMBIEN. THIS RN STATES TO PT THAT HE ALREADY TOOK HIS AMBIEN WITH ALL HIS OTHER MEDS. PT STATES HE HAD ONE FROM HOME IN HIS SHIRT POCKET AND DROPPED IT ON THE GROUND. AMBIENT ABLET WAS FOUND AND THIS RN EDUCATED PT ON WHY HE CANNOT TAKE MEDS FROM HOME. WILL PASS ONTO DAY SHIFT RN TO EDUCATE FAMILY OR FRIENDS THAT COME IN TO NOT BRING MEDICATIONS FROM HOME FOR PT
[2023-10-08 05:39] VITALS: BP 121/77
--- NOTE | 2023-10-08 08:05 | NUR ---
PT WAS RESTING IN CHAIR. STATED THAT HE HAD SLEPT WELL DURING THE NUGHT. PER MICROBIOLOGY LABORATORY MANAGER, PT WAS CAUGHT TAKING A HOME MEDICATION DUE TO THE FACT THAT IT WAS ON THE GROUND. EDUCATED HIM ON THE IMPORTANCE OF NOT TAKING HIS HOME MEDICATIONS WHEN HE IS HERE. ASSESSMENT COMPLETE. PILLS TAKEN WHOLE IN APPLESAUCE. NO PAIN. O2 SAT AT 93%. CALL LIGHT WITHIN REACH, CHAIR ALARM ON.
--- NOTE | 2023-10-08 08:45 | NUR ---
PT IN CHAIR EATING BREAKFAST. STATED THAT HE WASNT HAVING ANY PAIN AT THE MOMENT AND HE SLEPT PRETTY GOOD. MEAL 100% ATE. ASSESSMENT COMPLETE. MEDICATION TAKEN PO. LAPTOP BROUGHT IN FOR PT ONLINE ONCOLOGY APPOINTMENT AND SET UP. FAMILY MEMBERS PRESENT IN ROOM. NO OTHER WANTS OR NEEDS AT THIS TIME. CALL LIGHT WITHIN REACH.
[2023-10-08 18:09] VITALS: BP 138/73
[2023-10-09 05:50] VITALS: BP 129/79
[2023-10-09 06:13] LABS: BASO # 0.08 K/mm3 (0.02-0.10); EOS # 0.48 K/mm3 (0.04-0.40); EOS % 4.7 % (0.0-4.0); HEMATOCRIT 41.6 % (42.0-52.0); HEMOGLOBIN 13.4 g/dL (13.5-18.0); MEAN CELL VOLUME 102 fl (78-100); MEAN CORPUSCULAR HEMOGLOBIN 33 pg (27-31); MEAN CORPUSCULAR HGB CONC 32 g/dL (33-37); MEAN PLATELET VOLUME 12.7 fl (7.4-10.4); MONO # 0.96 K/mm3 (0.20-0.80); NEU # 6.72 K/mm3 (1.40-6.50); PLATELET COUNT 139 K/mm3 (130-400); RED BLOOD COUNT 4.08 M/mm3 (4.20-5.60); WHITE BLOOD COUNT 10.2 K/mm3 (4.8-10.8)
[2023-10-09 06:21] LABS: ALBUMIN 3.4 g/dL (3.4-4.8)
[2023-10-09 06:23] LABS: CALCIUM 9.4 mg/dL (8.3-10.5)
[2023-10-09 06:24] LABS: TOTAL PROTEIN 6.5 g/dL (6.2-8.1)
[2023-10-09 06:26] LABS: TOTAL BILIRUBIN 0.8 mg/dL (0.2-1.2)
[2023-10-09 06:30] LABS: MAGNESIUM 1.62 mg/dL (1.60-2.60)
[2023-10-10 17:03] VITALS: BP 129/72
--- NOTE | 2023-10-10 17:21 | NUR ---
Pt has done well this afternoon. Did not receive noon novolog, but sugars decreased this afternoon. Denies needs, will give report to nightshift nurse who will resume care
--- NOTE | 2023-10-10 21:00 | NUR ---
Patient resting in bed watching TV. Denies pain. HS meds reviewed and given. Alert and oriented x 4. Pleasant. Groin creases cleansed, patted dry and nystatin powder applied. Mepilex to left groin CDI.
--- NOTE | 2023-10-11 05:06 | NUR ---
Patient reports he slept well this noc.
[2023-10-11 05:38] VITALS: BP 119/68
--- NOTE | 2023-10-11 06:50 | NUR ---
RESUMED CARE FROM BANDAR MARTIN.
--- NOTE | 2023-10-11 11:46 | NUR ---
PATIENT A&OX4. DENIES CURRENT PAIN, AMS, N/V/D, HEADACHE, DIZZINESS, OR SOA. REDNESS REMAINS TO GROIN, NYSTATIN APPLIED AND MEPILEX TO LEFT GROIN ABRASION. PATIENT EDUCATED ON KEEPING GROIN DRY AND APPLYING NYSTATIN DAILY WELL CONTINUE DRESSING CHANGES Q48HR TO ABRASION. PATIENT VERBALIZES UNDERSTANDING. DISCHARGE EDUCATION PROVIDED TO PATIENT. F/U WITH DR. QUINTANILLA SCHEDULED FOR 10/17/23. ALL RX SENT TO PREFERRED PHARMACY. ALL QUESTIONS ANSWERED. PATIENT WAS ASSISTED WITH SBA AND WALKER TO POV, WITHOUT INCIDENT. STEADY GAIT NOTED. ALL PERSONAL BELONGINGS TAKEN WITH.
== END 2023-10-11 11:46 | disposition home or self-care (01) | DRG 557 ==
LOC: MED/SURG 09:32
PROVIDERS: Family Medicine; Nurse Practitioner; Physician Assistant; ADMIT Internal Medicine
DX: M62.82 Rhabdomyolysis (principal); J96.20 Acute and chronic respiratory failure, unspecified whether with hypoxia or hypercapnia; I42.8 Other cardiomyopathies; E11.40 Type 2 diabetes mellitus with diabetic neuropathy, unspecified; Z79.84 Long term (current) use of oral hypoglycemic drugs; Z79.4 Long term (current) use of insulin; I10 Essential (primary) hypertension; G47.33 Obstructive sleep apnea (adult) (pediatric); E03.9 Hypothyroidism, unspecified; I48.91 Unspecified atrial fibrillation; F10.10 Alcohol abuse, uncomplicated
CPT/HCPCS: A9270; J1815; J3475

== ENCOUNTER → 2024-01-13 | Outpatient (CLI) | payer OTHER ==
[~2024-01-13] MED LIST changes: +ACETAMINOPHEN325 M1 PO; +AMBIEN10 MG PO; +BENADRYL; +BIOTIN10 MG PO; +BUDESONIDE0.5 MG/2 M IH; +CALCIUM CITRAT1 EAC9 PO; +DAILY VALUE1 EACH PO; +FLUTICASONE P15.8 ML NS; +HYGROTON 2525 MG/TAB PO; +K-TAB20 MEQ PO; +LASIX20 M1 PO; +LEVOCETIRIZINE D5 MG PO; +MOUNJARO15 MG/0.5 SQ; +NIACIN; +NORCO 325 MG-51 TA1 PO; +OPCON-A 0.027%-15 M1 OP; +PANTOPRAZOLE SO40 MG PO; +PHARMASSURE ZIN50 MG PO; +PROAIR HFA0.09 MG/AC IH; +SYSTANE COMPLE1 EACH OP; +TOUJEO MAX300 UNIT/1 SQ; +VITAMIN B121000 MC3 PO; +ZOLOFT 100MG100 MG PO
[2024-01-13 16:18] LABS: BASO # 0.06 K/mm3 (0.02-0.10); EOS # 0.16 K/mm3 (0.04-0.40); EOS % 2.3 % (0.0-4.0); HEMATOCRIT 50.1 % (42.0-52.0); HEMOGLOBIN 15.8 g/dL (13.5-18.0); MEAN CELL VOLUME 103 fl (78-100); MEAN CORPUSCULAR HEMOGLOBIN 32 pg (27-31); MEAN CORPUSCULAR HGB CONC 32 g/dL (33-37); MEAN PLATELET VOLUME 11.5 fl (7.4-10.4); MONO # 0.63 K/mm3 (0.20-0.80); PLATELET COUNT 156 K/mm3 (130-400); RED BLOOD COUNT 4.88 M/mm3 (4.20-5.60); RED CELL DISTRIBUTION WIDTH 14.5 % (11.5-14.5); WHITE BLOOD COUNT 6.9 K/mm3 (4.8-10.8)
[2024-01-13 16:31] LABS: ALBUMIN 3.7 g/dL (3.4-4.8)
[2024-01-13 16:32] LABS: CALCIUM 9.5 mg/dL (8.3-10.5)
[2024-01-13 16:34] LABS: TOTAL PROTEIN 6.8 g/dL (6.2-8.1)
[2024-01-13 16:35] LABS: TOTAL BILIRUBIN 0.8 mg/dL (0.2-1.2)
[2024-01-13 16:40] LABS: MAGNESIUM 1.49 mg/dL (1.60-2.60)
[2024-01-18 05:40] LABS: VITAMIN B1 168.9 nmol/L (())
== END ==
LOC: LAB 15:53
PROVIDERS: Internal Medicine
DX: G62.1 Alcoholic polyneuropathy (principal); F10.20 Alcohol dependence, uncomplicated; E78.5 Hyperlipidemia, unspecified; I10 Essential (primary) hypertension; E11.9 Type 2 diabetes mellitus without complications

== ENCOUNTER 2024-02-24 15:33 | Emergency (ER) | payer OTHER ==
[~2024-02-24] VITALS: Ht 182.9 cm; Wt 172.7 kg
[2024-02-24 15:45] VITALS: BP 128/75
[2024-02-24 16:31] LABS: BASO # 0.03 K/mm3 (0.02-0.10); EOS # 0.11 K/mm3 (0.04-0.40); EOS % 1.4 % (0.0-4.0); HEMATOCRIT 47.1 % (42.0-52.0); HEMOGLOBIN 15.3 g/dL (13.5-18.0); LYMPH# 1.17 K/mm3 (1.50-4.00); MEAN CELL VOLUME 99 fl (78-100); MEAN CORPUSCULAR HEMOGLOBIN 32 pg (27-31); MEAN CORPUSCULAR HGB CONC 33 g/dL (33-37); MEAN PLATELET VOLUME 11.3 fl (7.4-10.4); MONO # 0.75 K/mm3 (0.20-0.80); PLATELET COUNT 134 K/mm3 (130-400); RED BLOOD COUNT 4.76 M/mm3 (4.20-5.60); RED CELL DISTRIBUTION WIDTH 13.1 % (11.5-14.5)
[2024-02-24 16:37] LABS: ALBUMIN 3.6 g/dL (3.4-4.8)
[2024-02-24 16:39] LABS: CALCIUM 9.5 mg/dL (8.3-10.5)
[2024-02-24 16:40] LABS: TOTAL PROTEIN 6.8 g/dL (6.2-8.1)
[2024-02-24 16:42] LABS: TOTAL BILIRUBIN 0.8 mg/dL (0.2-1.2)
[2024-02-24] MEDS ORDERED: Iohexol 300 - 100 ML VIAL IV ONE (16:54)
[2024-02-24] MEDS ORDERED: Sulfamethoxazole/Trimethoprim 800-160 MG TAB PO ONE (17:30)
[2024-02-24] MEDS ORDERED: Lidocaine 2% Viscous 15 ML UNIT DOSE CUP MM ONE (17:30)
[2024-02-24] MEDS ORDERED: fentaNYL 100 MCG/2 ML VIAL IV ONE (17:30)
[2024-02-24] MEDS ORDERED: Lidocaine 2% (20 MG/ML) 20 ML UROJECT UR ONE (17:45)
[2024-02-24] MEDS ORDERED: Lidocaine 2% Jelly 5 GM TUBE TOP ONE (17:50)
[2024-02-24] MEDS ORDERED: NORCO 325 MG-51 TA1 PO (18:14)
[2024-02-24] MEDS ORDERED: Home HYDROcodone/Acetaminophen 5/325 MG #4 TABS/PACK PO ONE (18:15)
[2024-02-25] MEDS ORDERED: BACTRIM DS TAB1 EACH PO (10:10)
[2024-02-25] MEDS ORDERED: NYSTATIN POWDER30 GM TOP (10:10)
[2024-03-03] MEDS ORDERED: NORCO 325 MG-51 TA1 PO (13:53)
== END 2024-02-24 18:45 | disposition home or self-care (01) ==
LOC: ED 15:33
PROVIDERS: Physician Assistant
DX: L02.214 Cutaneous abscess of groin (principal); E11.9 Type 2 diabetes mellitus without complications; Z79.84 Long term (current) use of oral hypoglycemic drugs; Z91.040 Latex allergy status; Z88.1 Allergy status to other antibiotic agents
CPT/HCPCS: J3010; Q9967

== ENCOUNTER 2024-02-28 11:02 | Outpatient (RCR) | payer OTHER ==
[2024-02-25 09:42] VITALS: BP 124/76
--- NOTE | 2024-02-25 10:35 | NUR ---
PT ARRIVED PER WITH . HERE FOR OP WOUND CARE TO LEFT GROIN. WAS SEEN IN ER LAST EVENING FOR POSSIBLE ABCESS TO LEFT GROIN. IMAGING DONE HERE AT [facility] TO CONFIRM NO FISTULA PRESENT. WOUND WAS CULTURED ON 02/24/24. AWAITING RESULTS. STARTED ON BACTRIM LAST NIGHT IN ER, BUT SCRIPT DID NOT GET SENT TO PHARMACY. SENT SCRIPT TODAY. PT'S WILL UTILITY TENDER CARDING SCRIPT TODAY AND IS AWARE THAT PT NEEDS TO TAKE 2 DOSES TODAY. REMOVED ABD THAT WAS SITTING IN GROIN FOLD OVER TOP OF THE PACKED WOUND. NOTED MOD AMOUNT SEROSANG DRAINAGE. REMOVED 28CM OF IODOFORM PACKING FROM WOUND. PT IN NOTICEABLE AMOUNT OF PAIN. MOSTLY WITH PULLING BACK THE SKIN FOLDS TO VISUALIZE THE WOUND. STATES HE WAS ONLY SENT HOME WITH 4 TABS OF NORCO LAST NIGHT, SO HE WAS TRYING TO CONSERVE THEM AND DID NOT TAKE ONE BEFORE COMING IN TODAY. INSTRUCTED PT TO ALWAYS TAKE A PAIN PILL AT LEAST 30 MIN PRIOR TO WOUND CARE APPOINTMENT. INSTILLED 5ML OF 2% LIDOCAINE GEL INTO AND AROUND THE OPEN GROIN WOUND. THEN IRRIGATED WOUND WITH STERILE WATER AND DRIED WELL. WOUND WAS PACKED GENTLY WITH 1/2 INCH IODOFORM GAUZE BY Mayda IVERSON APRN. SEE PROVIDER NOTE FROM Mayda IVERSON APRN FOR MEASUREMENTS. PHOTOS TAKEN WITH PT CONSENT. CONSENT SIGNED AND ON FILE IN CHART. PT LEFT FACILITY IN WITH . SHAKY WITH STANDING BUT ABLE TO TRANSFER WITH MINIMAL ASSIST.
[2024-02-26 09:50] VITALS: BP 138/71
--- NOTE | 2024-02-26 10:37 | NUR ---
ARRIVES PER WC FOR OP WOUND CARE TO LEFT GROIN. REMOVED 13CM OF IODOFORM PACKING. SEROSANGUINOUS DRAINAGE NOTED . STILL PAINFUL TO TOUCH. LIDOCAINE 2%GEL APPLIED. PACKED WOUND WITH COLLAGEN TRACEY AND COVERED WITH OPTILOCK DRESSING. TAPED IN PLACE WITH PAPER TAPE. MEASUREMENTS TAKEN AGAIN TODAY. SEE PROVIDER NOTE BY Mayda PLASCENCIA APRN
[~2024-02-28] VITALS: Ht 182.9 cm; Wt 172.7 kg
[~2024-02-28 11:02] MED LIST changes: +BACTRIM DS TAB1 EACH PO; +Lidocaine 2% Jelly 5 GM TUBE TOP ONE; +Lidocaine 2% Jelly 5 GM TUBE TOP SCH; +NYSTATIN POWDER30 GM TOP
[2024-02-28 11:06] VITALS: BP 142/70
--- NOTE | 2024-02-28 11:43 | NUR ---
PT ARRIVED PER WC WITH FOR OP WOUND CARE TO LEFT GROIN. SEE PROVIDER NOTE BY Mayda IVERSON APRN.
[2024-03-03] MEDS ORDERED: NORCO 325 MG-51 TA1 PO (13:53)
[2024-03-20] MEDS ORDERED: MUPIROCIN CALCIUM2% TP (14:07)
== END 2024-03-02 | disposition home or self-care (01) ==
LOC: AMSURD
DX: L02.214 Cutaneous abscess of groin (principal)
CPT/HCPCS: A6021

== ENCOUNTER → 2024-03-20 | Outpatient (CLI) | payer OTHER ==
[~2024-03-20] MED LIST changes: -Lidocaine 2% Jelly 5 GM TUBE TOP ONE; -Lidocaine 2% Jelly 5 GM TUBE TOP SCH; +MUPIROCIN CALCIUM2% TP
== END ==
LOC: LAB 14:46
DX: T81.49XA Infection following a procedure, other surgical site, initial encounter (principal)

== ENCOUNTER 2024-03-31 10:37 | Outpatient (RCR) | payer OTHER ==
[2024-03-03 12:10] VITALS: BP 158/73
--- NOTE | 2024-03-03 12:39 | NUR ---
PT ARRIVED PER WC WITH SPOUSE FOR OP WOUND CARE TO LEFT GROIN. REMOVED CURRENT DRESSING. ONLY MIN AMT OF BLOODY DRAINAGE NOTED. LIDOCAINE 2% JELLY INSTILLED INTO WOUND AND ALLOWED TO SIT. SEE PROVIDER NOTE FROM Mayda IVERSON APRN FOR MEASUREMENTS AND DESCRIPTION.
[2024-03-06 12:11] VITALS: BP 132/60
[2024-03-11 15:30] VITALS: BP 144/84
--- NOTE | 2024-03-11 15:30 | NUR ---
PATIENT TO ROOM 5 FOR WOUND CARE TO GROIN. MEASUREMENTS TAKEN. SEE MARION IVERSON APRN NOTE.
--- NOTE | 2024-03-20 14:58 | NUR ---
see provider note from martha babb aprn. wound culture from new found wound in rt axilla skin fold
[2024-03-24 14:05] VITALS: BP 161/91
[2024-03-27 11:07] VITALS: BP 130/80
--- NOTE | 2024-03-27 15:12 | NUR ---
SEE PROVIDER NOTE FROM Mayda IVERSON APRN
[~2024-03-31] VITALS: Ht 182.9 cm; Wt 172.7 kg
[~2024-03-31 10:37] MED LIST changes: +Lidocaine 2% Jelly 5 GM TUBE TOP ONE; +Lidocaine 2% Jelly 5 GM TUBE TOP PRN
[2024-03-31 11:33] VITALS: BP 158/82
--- NOTE | 2024-03-31 11:34 | NUR ---
PT HERE FOR OP WOUND CARE TO RT AXILLA AND LEFT GROIN. SEE PROVIDER NOTE FROM Mayda IVERSON APRN.
== END 2024-04-02 | disposition home or self-care (01) ==
LOC: AMSURD
DX: L02.214 Cutaneous abscess of groin (principal)
CPT/HCPCS: A6021; A6197

== ENCOUNTER → 2024-04-03 | Outpatient (CLI) | payer OTHER ==
[~2024-04-03] VITALS: Ht 182.9 cm; Wt 172.7 kg
[~2024-04-03] MED LIST changes: -Lidocaine 2% Jelly 5 GM TUBE TOP ONE
[2024-04-03 14:45] VITALS: BP 150/88
--- NOTE | 2024-04-03 14:55 | NUR ---
SEE PROVIDER NOTE FROM Mayda IVERSON APRN
== END ==
LOC: AMSURD 14:11
DX: L02.214 Cutaneous abscess of groin (principal)

== ENCOUNTER 2024-07-02 14:59 | Emergency (ER) | payer OTHER ==
[~2024-07-02] VITALS: Ht 182.9 cm; Wt 177.6 kg
[~2024-07-02 14:59] MED LIST changes: -Lidocaine 2% Jelly 5 GM TUBE TOP PRN
[2024-07-02 15:55] VITALS: BP 119/57
== END 2024-07-02 16:16 | disposition home or self-care (01) ==
LOC: ED 14:59
DX: S09.90XA Unspecified injury of head, initial encounter (principal); S50.312A Abrasion of left elbow, initial encounter; Z91.040 Latex allergy status; Z79.01 Long term (current) use of anticoagulants; W18.30XA Fall on same level, unspecified, initial encounter; W22.8XXA Striking against or struck by other objects, initial encounter; Y92.009 Unspecified place in unspecified non-institutional (private) residence as the place of occurrence of the external cause

== ENCOUNTER → 2024-07-30 | Outpatient (CLI) | payer OTHER ==
[2024-07-30 16:13] LABS: BASO # 0.06 K/mm3 (0.02-0.10); EOS # 0.22 K/mm3 (0.04-0.40); EOS % 2.8 % (0.0-4.0); HEMATOCRIT 44.3 % (42.0-52.0); HEMOGLOBIN 14.1 g/dL (13.5-18.0); LYMPH# 1.12 K/mm3 (1.50-4.00); MEAN CELL VOLUME 99 fl (78-100); MEAN CORPUSCULAR HEMOGLOBIN 32 pg (27-31); MEAN CORPUSCULAR HGB CONC 32 g/dL (33-37); MEAN PLATELET VOLUME 11.1 fl (7.4-10.4); MONO # 0.72 K/mm3 (0.20-0.80); NEU # 5.81 K/mm3 (1.40-6.50); PLATELET COUNT 149 K/mm3 (130-400); RED BLOOD COUNT 4.48 M/mm3 (4.20-5.60); RED CELL DISTRIBUTION WIDTH 15.9 % (11.5-14.5)
[2024-07-30 16:19] LABS: ALBUMIN 3.6 g/dL (3.4-4.8)
[2024-07-30 16:20] LABS: CALCIUM 9.8 mg/dL (8.3-10.5)
[2024-07-30 16:21] LABS: TOTAL PROTEIN 7.4 g/dL (6.2-8.1)
[2024-07-30 16:23] LABS: TOTAL BILIRUBIN 1.3 mg/dL (0.2-1.2)
[2024-07-30 16:28] LABS: MAGNESIUM 1.38 mg/dL (1.60-2.60)
[2024-07-30 23:13] LABS: FOLATE (FOLIC ACID) 10.8 ng/mL (2.0-20.0); TESTOSTERONE 153 ng/dL (221-716)
== END ==
LOC: LAB 15:51
PROVIDERS: Internal Medicine
DX: Z12.5 Encounter for screening for malignant neoplasm of prostate (principal); E03.4 Atrophy of thyroid (acquired); E78.5 Hyperlipidemia, unspecified; I10 Essential (primary) hypertension; E83.42 Hypomagnesemia; E11.9 Type 2 diabetes mellitus without complications; K90.9 Intestinal malabsorption, unspecified

== ENCOUNTER → 2024-09-15 | Outpatient (CLI) | payer OTHER ==
[2024-09-15 22:40] LABS: PROLACTIN AMS 18.9 ng/mL (3.5-19.4)
== END ==
LOC: LAB 15:10
PROVIDERS: Internal Medicine
DX: E03.4 Atrophy of thyroid (acquired) (principal); E83.42 Hypomagnesemia; E11.9 Type 2 diabetes mellitus without complications; R89.1 Abnormal level of hormones in specimens from other organs, systems and tissues